=== PATIENT | male | born 2000 | race African-American/Black ===

== ENCOUNTER 2023-12-04 01:51 | Emergency (ER) | payer OTHER, SELFPAY ==
[2023-12-04 01:56] VITALS: BP 131/95; PULSE 83; RESP 16; TEMP 37.1; O2SAT 97
--- NOTE | 2023-12-04 02:19 | ED.GENADULT ---
HPI - General Adult General Chief complaint: Recheck/Abnormal Lab/Rx Stated complaint: STD screening Time Seen by Provider: 12/04/23 01:55 History of Present Illness HPI narrative: 23-year-old male requesting STD testing. Patient has a new sexual partner in the last week. He has developed a tingling when he urinates. No penile discharge ulcerations or growths. Exam Narrative: APPEARANCE: No apparent distress. Head: atraumatic. EYES: EOMI, NOSE: Atraumatic NECK: Trachea midline RESPIRATORY: No increased rate of breathing CARDIOVASCULAR: RRR, ABDOMINAL: Non-distended MUSCULOSKELETAl: No obvious deformities Genital exam: grossly normal external genitalia, no ulcerations or growths. No testicular pain NEURO: Alert. Moving 4/4 extremities SKIN:: Warm, dry. Normal color PSYCHIATRIC: Normal affect Course Vital Signs Vital signs: Vital Signs Temperature 98.7 F 12/04/23 01:56 Pulse Rate 83 12/04/23 01:56 Respiratory Rate 16 12/04/23 01:56 Blood Pressure 131/95 H 12/04/23 01:56 Pulse Oximetry 97 12/04/23 01:56 Oxygen Delivery Room Air 12/04/23 01:56 Temperature 98.7 F 12/04/23 01:56 Pulse Rate 83 12/04/23 01:56 Respiratory Rate 16 12/04/23 01:56 Blood Pressure 131/95 H 12/04/23 01:56 Pulse Oximetry 97 12/04/23 01:56 Oxygen Delivery Room Air 12/04/23 01:56 Medical Decision Making MDM Narrative Medical decision making narrative: -Course: 23-year-old requesting STD testing. Patient does not want wait for the results. He will check the patient portal. Patient given instructions to check portal and return if any of his results are positive. Vital Signs Vital Signs: Vital Signs Temperature 98.7 F 12/04/23 01:56 Pulse Rate 83 12/04/23 01:56 Respiratory Rate 16 12/04/23 01:56 Blood Pressure 131/95 H 12/04/23 01:56 Pulse Oximetry 97 12/04/23 01:56 Oxygen Delivery Room Air 12/04/23 01:56 Temperature 98.7 F 12/04/23 01:56 Pulse Rate 83 12/04/23 01:56 Respiratory Rate 16 12/04/23 01:56 Blood Pressure 131/95 H 12/04/23 01:56 Pulse Oximetry 97 12/04/23 01:56 Oxygen Delivery Room Air 12/04/23 01:56 Discharge Plan Discharge Clinical Impression: Possible exposure to STI Patient Disposition: Home, Self-Care Condition: Stable Instructions: Antibiotic Form, Safe Sex Practices (ED) Additional Instructions: Please check the portal for your STI results. Return if any of the tests are positive or if you develop symptoms. Follow-up/Referrals: PHYSICIAN NOT ON STAFF,NONSTAFF [Primary Care Provider] -
[2023-12-04 02:43] VITALS: BP 148/90; PULSE 82; RESP 16; O2SAT 98
[2023-12-04 03:47] LABS: Trichomonas Vag PCR NOT DETECTED (NOT DETECTE)
[2023-12-04 04:12] LABS: Chlamydia trachomatis NOT DETECTED (NOT DETECTE); Neisseria gonorrhoeae PCR NOT DETECTED (NOT DETECTE)
[2023-12-05 10:03] LABS: HIV 1 2 Ag Ab 4th Gen w Rflxs NON-REACTIVE (NON-REACTIVE)
[2023-12-06 14:28] LABS: Rapid Plasma Reagin Non-Reactive (NonReactive)
== END 2023-12-04 02:58 | disposition home or self-care (01) ==
LOC: ANHED 02:34
PROVIDERS: Emergency Provider Emergency Medicine
DX: R30.0 Dysuria (principal); Z11.3 Encounter for screening for infections with a predominantly sexual mode of transmission
CPT/HCPCS: 36415; 86592; 87389; 87491; 87591; 87661; 99283